=== PATIENT | male | born 1980 | race Hispanic/Latino ===

== ENCOUNTER 2018-08-05 02:47 | Inpatient (IN) | payer SELFPAY ==
[2018-08-05 02:47] VITALS: BMI 28.5
--- NOTE | 2018-08-05 03:12 | C.PDOC ---
History Of Present Illness Patient walked into the the ER stating he feels depressed and suicidal. States he wants to go home and take his meds. Patient reports he was hospitalized for similar last week in [place]. He also notes he is homeless and is looking for a place to stay. Denies physical complaints at this time. Time Seen by Provider: 08/05/18 03:12 Chief Complaint (Nursing): Psychiatric Evaluation History Per: Patient History/Exam Limitations: no limitations Onset/Duration Of Symptoms: Hrs Current Symptoms Are (Timing): Still Present Suicide/Self Injury Attempted (Context): None Modifying Factor(s): None Severity: None Pain Scale Rating Of: 0 Associated Symptoms: Depression, Suicidal Thoughts Involuntary Hold By: None Recent travel outside of the [place]: No Additional History Per: Patient Past Medical History Reviewed: Historical Data, Nursing Documentation, Vital Signs Vital Signs: Last Vital Signs Temp 97.9 F 08/05/18 02:57 Pulse 79 08/05/18 02:57 Resp 20 08/05/18 02:57 BP 136/90 08/05/18 02:57 Pulse Ox 98 08/05/18 02:57 - Medical History PMH: Anxiety, Arthritis, Bipolar Disorder, Depression, Schizophrenia Denies: Diabetes, Hepatitis, HIV, HTN, Seizures, Sexually Transmitted Disease Surgical History: Appendectomy - [facility] CONTINUOUS INVASIVE MECHANICAL VENTILATION <96 CONSEC HRS (09/11/14) INDIVID PSYCHOTHERAP NEC (07/14/14) INSERT ENDOTRACHEAL TUBE (09/11/14) PSYCHIAT DRUG THERAP NEC (07/14/14) Family History: States: No Known Family Hx - Social History Hx Tobacco Use: Yes Hx Alcohol Use: Yes (OCCASIONAL USE) Hx Substance Use: Yes (COCAINE) - Immunization History Hx Tetanus Toxoid Vaccination: No Hx Influenza Vaccination: Yes Hx Pneumococcal Vaccination: No Review Of Systems Constitutional: Negative for: Fever, Chills Cardiovascular: Negative for: Chest Pain, Palpitations Respiratory: Negative for: Cough, Shortness of Breath Gastrointestinal: Negative for: Nausea, Vomiting Musculoskeletal: Negative for: Back Pain Neurological: Negative for: Weakness Psych: Positive for: Depression, Suicidal ideation Physical Exam - Physical Exam Appears: Non-toxic Skin: Warm, Dry Head: Normacephalic Oral Mucosa: Moist Neck: Supple Chest: Symmetrical, No Tenderness Cardiovascular: Rhythm Regular Respiratory: No Rales, No Rhonchi, No Wheezing Gastrointestinal/Abdominal: Soft, No Tenderness Extremity: Normal ROM Extremity: Bilateral: Atraumatic Neurological/Psych: Oriented x3 Gait: Steady ED Course And Treatment - Laboratory Results Result Diagrams: 08/05/18 03:33 08/05/18 03:33 O2 Sat by Pulse Oximetry: 98 (Room air) Pulse Ox Interpretation: Normal Progress Note: Blood work and urinalysis ordered. Crisis notified. Disposition Discussed With Dr.: Jesús Lopez Comment: accepted the pt on is service and took over the care at 6:04 AM Doctor Will See Patient In The: Hospital Counseled Patient/Family Regarding: Studies Performed, Diagnosis - Disposition Disposition: HOSPITALIZED Disposition Time: 03:12 Condition: FAIR Forms: [facility] (Guamanian) - POA Present On Arrival: None - Clinical Impression Clinical Impression: Major depressive disorder with current active episode - Scribe Statement The provider has reviewed the documentation as recorded by the Scribe Mauricio Mcclain All medical record entries made by the Scribe were at my direction and personally dictated by me. I have reviewed the chart and agree that the record accurately reflects my personal performance of the history, physical exam, medical decision making, and the department course for this patient. I have also personally directed, reviewed, and agree with the discharge instructions and disposition. Decision To Admit - Pt Status Changed To: Hospital Disposition Of: Inpatient - Admit Certification Admit to Inpatient:: After my assessment, the patient will require hospitalization for at least two midnights. This is because of the severity of symptoms shown, intensity of services needed, and/or the medical risk in this patient being treated as an outpatient. - InPatient: Physician Admission Certification: I certify that this patient requires 2 or more midnights of care for the following reason:: After my assessment, the patient will require hospitalization for at least two midnights. This is because of the severity of symptoms shown, intensity of services needed, and/or the medical risk in this patient being treated as an outpatient. - . Bed Request Type: Psychiatry Admitting Physician: Jesús Lopez Patient Diagnosis: Major depressive disorder with current active episode
[2018-08-05 03:39] LABS: BASO % 0.3 % (0.0-2.0); EOS # 0.1 K/uL (0.0-0.7); EOS % 0.5 % (0.0-4.0); HEMOGLOBIN 15.2 g/dL (12.0-18.0); LYMPH # 1.9 K/uL (1.0-4.3); MEAN CORPUSCULAR HEMOGLOBIN 31.7 pg (27.0-31.0); MEAN CORPUSCULAR HGB CONC 33.7 g/dL (33.0-37.0); MEAN PLATELET VOLUME 7.7 fL (7.2-11.7); MONO # 0.9 K/uL (0.0-0.8); MONO % 5.2 % (0.0-10.0); NEUT # 14.1 K/uL (1.8-7.0); RBC 4.79 Mil/uL (4.40-5.90); RED CELL DISTRIBUTION WIDTH 12.8 % (11.5-14.5); WHITE BLOOD COUNT 16.9 K/uL (4.8-10.8)
[2018-08-05 03:42] LABS: SQUAMOUS EPITHIAL < 1 /hpf (0-5); URINE BILIRUBIN NEGATIVE (NEGATIVE); URINE BLOOD NEGATIVE (NEGATIVE); URINE CLARITY Clear (Clear); URINE COLOR Yellow (YELLOW); URINE GLUCOSE (UA) NORMAL (Normal); URINE LEUKOCYTE ESTERASE NEG Leu/uL (Negative); URINE PROTEIN 1+ mg/dL (NEGATIVE)
[2018-08-05 03:51] LABS: ALB/GLOB RATIO 1.8 (1.0-2.1); ALT/SGPT 32 U/L (21-72); AST/SGOT 41 U/L (17-59); BLOOD UREA NITROGEN 21 mg/dL (9-20); GFR NON-AFRICAN AMERICAN > 60
[2018-08-05 03:53] LABS: BENZODIAZEPINES, UR NEGATIVE (NEGATIVE); OPIATES, UR NEGATIVE (NEGATIVE); PHENCYCLIDINE, UR NEGATIVE (NEGATIVE)
[2018-08-05 03:56] LABS: BARBITURATES, UR NEGATIVE (NEGATIVE)
[2018-08-05 06:35] VITALS: RESP 16; O2SAT 95
--- NOTE | 2018-08-05 10:27 | PCM.PSYCH ---
Initial Psychiatric Evaluation - Initial Psychiatric Evaluation Type of Admission: Voluntary Legal Status: Capacity Chief Complaint (in patient's own words): I was feeling depressed and suicidal. History of Present Illness and Precipitating Events: Patient is a 38 years old male who came to the [facility] ED with depressed mood and suicidal ideation. Patient reports history of multiple inpatient psychiatric hospitalizations in [place]. He reports history of follow-up with an unknown psychiatrist in [place]. He reports that he just moved from [place] to [place] a week ago. He reports that he was noncompliant that his medications and developed bad thoughts to kill himself. So he came to the hospital to get help. He reports depressed mood, at times feelings of hopelessness and helplessness. He also reports poor sleep and anhedonia. He denies any auditory hallucinations or any paranoia. He reports of abusing cocaine and marijuana off and on. Patient remained guarded about the details. Pt has a prior hx of suicide attempts. At age 10, Pt jumped from a 2nd story window, resulting in Pt breaking his left arm. Pt also reports a hx of od on "a bunch of pills", resulting in Pt being placed on "life support" ([facility]). Patient remained guarded with the details as well. Past medical history None reported Past Psychiatric History - Past Psychiatric History Previous Treatment History: Inpatient Pertinent Medical Hx (Current Medical&Sleep Prob, Allergies): Allergies Allergy/AdvReac Type Severity Reaction Status Date / Time sertraline [From Zoloft] Allergy Verified 08/05/18 03:05 SEROquel 100 mg PO BID 05/22/14 Vistaril 50 mg PO DAILY PRN 05/22/14 Amoxicillin and Clavulanate Potassium 875 mg- 1 tab PO BID 07/14/14 Cyclobenzaprine 10 mg PO HS 07/14/14 Naproxen 500 mg PO BID 07/14/14 Baclofen 10 mg PO HS 09/11/14 Cyclobenzaprine HCl [Cyclobenzaprine Hydrochloride] 10 mg PO HS PRN 09/11/14 Diclofenac Sodium 75 mg PO BID 09/11/14 Hydroxyzine Pamoate 50 mg PO BID PRN 09/11/14 Nabumetone 500 mg PO BID 09/11/14 Pantoprazole [Protonix EC Tab] 40 mg PO DAILY 09/11/14 Quetiapine Fumarate 100 mg PO BID 09/11/14 risperiDONE [RisperDAL Tab] 0.5 mg PO HS 09/11/14 Review of Systems - Review of Systems All systems: reviewed and no additional remarkable complaints except Mental Status Examination - Personal Presentation Personal Presentation: Looks stated age - Affect Affect: Constricted, Depressed - Motor Activity Motor Activity: Calm - Reliability in Providing Information Reliability in Providing Information: Fair - Speech Speech: Organized - Mood Mood: Depressed, Anxious - Formal Thought Process Formal Thought Process: No Impairment - Obsessions/Compulsions Obsessions: No Compulsions: No - Cognitive Functions Orientation: Person, Place, Situation, Time Sensorium: Alert Attention/Concentration: Attentive Abstract Thinking: [place] Estimate of Intelligence: Below average Judgement: Imparied, as evidence by: Poor judgement, Imparied, as evidence by: Lack of insight into illness - Risk Risk: Suicidal, Diminished functioning - Limitations Limitations: Living alone DSM 5 DX - DSM 5 DSM 5 Diagnosis: Bipolar disorder depressed severe without psychotic features Cocaine use disorder severe Cannabis use disorder moderate - Recommended/Plan of Treatment Treatment Recommendations and Plan of Treatment: Bipolar disorder depressed severe without psychotic features Cocaine use disorder severe Cannabis use disorder moderate CBT Psychotherapy and supportive therapy Group therapy, individual therapy and milieu therapy Trazodone for insomnia Hydroxyzine for anxiety Gabapentin for mood
--- NOTE | 2018-08-05 12:26 | PCM.BM ---
Treatment Plan Problems - Problems identified on initial assessmt etoh abuse related to infective coping skills Date Initiated: 08/05/18 Time Initiated: 12:25 Date resolved: 08/05/18 Assessment reference: NA Status: Active
--- NOTE | 2018-08-05 12:43 | PCM.BM ---
<DanielleJesica - Last Filed: 08/05/18 12:40> Treatment Plan Problems - Problems identified on initial assessmt ineffective coping skills Date Initiated: 08/05/18 Time Initiated: 12:41 Date resolved: 08/05/18 Assessment reference: NA Status: Active altered thought process Date Initiated: 08/05/18 Time Initiated: 12:42 Date resolved: 08/05/18 Assessment reference: NA Status: Active Treatment assets and liabiliti Patient Assests: self-reliant, good support system Patient Liabilities: financial problems, substance abuse (cocaine, thc) - Milieu Protocol Maintain good personal hygiene: daily Encourage regular showers, daily Remind patient to perform daily oral care, daily Assist patient to perform ADL's Conduct patient checks and document Observation sheet: Q15 minutes Maintain personal safety: every shift Educate patient to report safety concerns to staff, every shift Monitor environment for contraband/sharps Medication safety: Monitor for expected outcome, potential side effects: every shift, Assess barriers to learning: every shift, Assess readiness for medication education: every shift <Patricia Rodriguez - Last Filed: 08/06/18 11:37> Family Contact Family involvement: Famliy/SO not involved - Goals for Treatment Patient goals for treatment: "I need to leave today." Discharge/Continuing Care - Education Needs Education Needs: Patient Medication, Patient Coping Skills - Discharge Discharge Criteria: Tolerates medication w/o severe side effects, Free of Suicidal thoughts, Reduction of target symptoms Discharge to:: Home, With Family - Treatment Team Participation Discussed with Family/SO: No Was Patient/Family/SO present at Treatment Team Meeting: Yes <Jesús Lopez - Last Filed: 08/06/18 12:05> Treatment Plan Problems - Problems identified on initial assessmt ineffective coping skills Date Initiated: 08/05/18 Time Initiated: 12:41 Date resolved: 08/05/18 Assessment reference: NA Status: Active altered thought process Date Initiated: 08/05/18 Time Initiated: 12:42 Date resolved: 08/05/18 Assessment reference: NA Status: Active - Diagnosis (1) Mood disorder Status: Acute Interventions: 08/06/18 12:05 * Assess/adjust medications daily and /or as needed * See patient on an individual basis 7x/week to assess level of manic behaviors and stability * Discuss risks, benefits, side effects and alternatives of medications *
[2018-08-06 06:42] VITALS: TEMP 98
[2018-08-06 09:12] VITALS: BP 120/67; PULSE 68
[2018-08-06] MEDS ORDERED: Pantoprazole 40 mg EC Tab PO SCH (10:45)
--- NOTE | 2018-08-06 12:04 | PCM.PYCHDC ---
Mental Status Examination - Mental Status Examination Orientation: Person, Place, Situation, Time Memory: Intact Mood: Neutral Affect: Constricted Speech: Soft Attention: WNL Concentration: WNL Association: WNL Fund of Knowledge: WNL Formal Thought Process: No Impairment Description of patient's judgement and insight: partially impaired Psychotic Thoughts and Behaviors: denies any AVH Suicidal Ideation: No Current Homicidal Ideation?: No Discharge Summary - Discharge Note Reason for Hospitalization: Patient is a 38 years old male who came to the [facility] ED with depressed mood and suicidal ideation. Patient reports history of multiple inpatient psychiatric hospitalizations in [place]. He reports history of follow-up with an unknown psychiatrist in [place]. He reports that he just moved from [place] to [place] a week ago. He reports that he was noncompliant that his medications and developed bad thoughts to kill himself. So he came to the hospital to get help. He reports depressed mood, at times feelings of hopelessness and helplessness. He also reports poor sleep and anhedonia. He denies any auditory hallucinations or any paranoia. He reports of abusing cocaine and marijuana off and on. Patient remained guarded about the details. Pt has a prior hx of suicide a ttempts. At age 10, Pt jumped from a 2nd story window, resulting in Pt breaking his left arm. Pt also reports a hx of od on "a bunch of pills", resulting in Pt being placed on "life support" ([facility]). Patient remained guarded with the details as well. Consultations:: List each consultation separately and include: 1. Reason for request. 2. Findings. 3. Follow-up Summary of Hospital Course include:: 1. Description of specific treatment plan utilized for patients during their course of treatmen. 2. Summarize the time- course for resolution of acute symptoms and/or regressed behaviors. 3. Describe issues identified and worked on during hospitalization. 4. Describe medication utilized. 5. Describe medical problems identified and treated. 6. Reassessment of suicide risk Summary of Hospital Course: 38yo man self-referred to ED reportedly c/o suicide idx while under the influence of cocaine/THC; Pt reports the following: "I was just in the hospital ([facility]);" I got released;" I came over here with my mom;" I just started thinking bad again (began having thoughts of suicide);" I'm tired of everything going wrong;" Pt was admitted to [facility] one and a half weeks ago secondary to making a suicide threat (Pt reported being on a bridge with idx/intent to jump from same); Pt's girlfriend interrupted same after locating Pt from her phone GPS); The above suicide threat was precipitated by loss of employment; Pt's girlfriend would subsequently end their relationsh ; Pt has since moved in with his mother (mother lives in [place]); Pt is not currently linked with outpt services; Pt's symptoms of depression/suicide/anhedonia resumed "5days ago"; Pt has since contemplated "many ways" to attempt suicide; Pt described his recent symptoms of depression/anhedonia as: "just feel empty, I'm lost, I hardly sleep"; Pt has also had a loss of appetite, and reports losing "20lbs" over a one and a half month period; Pt has a prior hx of suicide attempts; At age 10, Pt jumped from a 2nd story window, resulting in Pt breaking his left arm (Pt denied LOC); Pt was not hospitalized psychiatrically at the time; Pt also reports a hx of od on "a bunch of pills", resulting in Pt being placed on "life support" ([facility]). [ End ] - Final Diagnosis (DSM 5) Condition upon Discharge: FAIR DSM 5: Bipolar disorder depressed severe without psychotic features Cocaine use disorder severe Cannabis use disorder moderate Disposition: AGAINST MEDICAL ADVICE
[2018-08-06] MEDS ORDERED: BACLOFEN 10 MG PO SCH (22:00)
== END 2018-08-06 12:15 | disposition left against medical advice (07) | DRG 885 ==
LOC: C.ER 02:47 → C.5E 06:03
PROVIDERS: ADMIT Psychiatry & Neurology Psychiatry; ATTEND Psychiatry & Neurology Psychiatry
PROC: GZ3ZZZZ Medication Management (ICD-10-PCS; principal; 2018-08-05)
PROC: GZHZZZZ Group Psychotherapy (ICD-10-PCS; 2018-08-05)
PROC: GZ56ZZZ Individual Psychotherapy, Supportive (ICD-10-PCS; 2018-08-05)
DX: F31.4 Bipolar disorder, current episode depressed, severe, without psychotic features (principal); F14.20 Cocaine dependence, uncomplicated; R45.851 Suicidal ideations; F12.10 Cannabis abuse, uncomplicated; F20.9 Schizophrenia, unspecified; F17.210 Nicotine dependence, cigarettes, uncomplicated; F41.9 Anxiety disorder, unspecified; Z91.5 Personal history of self-harm; Z91.19 Patient's noncompliance with other medical treatment and regimen